=== PATIENT | female | born 1960 | race Caucasian/White ===

== ENCOUNTER 2017-07-09 08:51 | Inpatient (IN) | payer BC ==
[~2017-07-09 08:51] MED LIST: EPHEDrine SULFATE 50 MG/5 ML SYG
[2017-07-09] MEDS: LACTATED RINGER'S 1,000 ML IV ×2 (09:58→18:00)
[2017-07-09] MEDS ORDERED: PROPOFOL 20 ML ×2 (12:21→13:03)
[2017-07-09] MEDS ORDERED: MIDAZOLAM 1 MG/ML 2 ML INJ (12:22)
[2017-07-09] MEDS ORDERED: FENTAnyl 50 MCG/ML VIAL (12:22)
[2017-07-09] MEDS ORDERED: ROPIVACAINE 0.2% 20 ML VIAL ×2 (12:22→12:24)
[2017-07-09] MEDS ORDERED: BUPIVACAINE 0.75%/DEXT (SPINAL) 2 ML INJ (12:22)
[2017-07-09] MEDS ORDERED: METOCLOPRAMIDE 10 MG INJ (12:22)
[2017-07-09] MEDS ORDERED: ONDANSETRON 4 MG INJ (12:22)
[2017-07-09] MEDS: CEFAZOLIN 2 GM/50 ML (PMX) 50 ML (FOR WT < 120 KG) IVPB (12:56)
[2017-07-09] MEDS ORDERED: CEFAZOLIN 1 GM INJ (12:57)
[2017-07-09] MEDS ORDERED: ACETAMINOPHEN 1000MG/100ML IV 100 ML (12:57)
[2017-07-09] MEDS: TRANEXAMIC ACID 1,000 MG in D5W 100 ML AT INCISION X1 IVPB (13:14)
[2017-07-09] MEDS ORDERED: ONDANSETRON 4 MG INJ IV (13:30)
[2017-07-09] MEDS ORDERED: DIPHENHYDRAMINE 50 MG INJ IV ×2 (13:30→14:30)
[2017-07-09] MEDS ORDERED: MEPERIDINE 25 MG INJ IV (13:30)
[2017-07-09] MEDS ORDERED: HYDROmorphONE (0.2 MG/ML) 10ML SYG IV ×2 (13:30)
[2017-07-09] MEDS: BACITRACIN 50000 UNITS INJ IRR (13:39)
[2017-07-09] MEDS: POLYMYXIN B 500000 UNIT INJ IRR (13:39)
[2017-07-09] MEDS: TRANEXAMIC ACID 1,000 MG in D5W 100 ML AT CLOSURE X1 IVPB (13:40)
[2017-07-09] MEDS ORDERED: KETOROLAC 30 MG INJ (14:14)
[2017-07-09] MEDS: SOD CHLORIDE 0.9% 1,000 ML IV (14:27)
[2017-07-09] MEDS ORDERED: KETOROLAC 15 MG INJ IV (14:30)
[2017-07-09] MEDS ORDERED: oxyCODONE 5 MG TAB PO (14:30)
[2017-07-09] MEDS ORDERED: ZOLPIDEM 5 MG TAB PO (14:30)
[2017-07-09] MEDS ORDERED: MAGNESIUM HYDROXIDE 30ML CUP PO (14:30)
[2017-07-09] MEDS ORDERED: NA PHOSPHATE/BIPHOS 133 ML ENEMA PR (14:30)
[2017-07-09] MEDS ORDERED: TRIMETHOBENZAMIDE 100 MG/ML VIAL IM (14:30)
[2017-07-09] MEDS ORDERED: BETHANECHOL 25 MG TAB PO (14:30)
[2017-07-09] MEDS ORDERED: NALOXONE (0.4 MG/ML) INJ IV (14:30)
[2017-07-09] MEDS ORDERED: BISACODYL 10 MG SUPP PR (14:30)
[2017-07-09] MEDS ORDERED: SENNA/DOCUSATE NA (8.6MG/50MG) TAB PO (14:30)
[2017-07-09] MEDS: ONDANSETRON 4 MG INJ IV ×2 (14:54→20:30)
[2017-07-09] MEDS: DOCUSATE SODIUM 100 MG CAP PO (14:55)
[2017-07-09] MEDS: ASPIRIN (EC) 325 MG TAB PO (14:55)
[2017-07-09] MEDS: CEFAZOLIN 1 GM/50 ML (PMX) 50 ML IVPB ×2 (14:57→22:34)
[2017-07-09] MEDS ORDERED: BACITRACIN 50000 UNITS INJ (15:00)
[2017-07-09] MEDS: HYDROmorphONE (0.2 MG/ML) 10ML SYG IV (15:08)
[2017-07-09] MEDS: oxyCODONE 5 MG TAB PO ×2 (17:44→21:20)
[2017-07-09] MEDS: GABAPENTIN 100 MG CAP PO (21:00)
[2017-07-09] MEDS ORDERED: CELECOXIB 100 MG CAP PO (21:00)
[2017-07-10] MEDS: LACTATED RINGER'S 1,000 ML IV (02:00)
[2017-07-10] MEDS: oxyCODONE 5 MG TAB PO ×4 (02:12→13:55)
[2017-07-10] MEDS: SOD CHLORIDE 0.9% 1,000 ML IV (02:16)
[2017-07-10] MEDS: ONDANSETRON 4 MG INJ IV ×2 (02:28→08:56)
[2017-07-10 05:46] LABS: ADD MAN DIFF? NO
[2017-07-10 05:52] LABS: BASOPHIL # 0.1 10^3/ul (0.0-0.1); BASOPHILS % 0.6 % (0.0-2.0); EOSINOPHILS # 0.1 10^3/ul (0.0-0.5); EOSINOPHILS % 0.8 % (0.0-7.0); HEMATOCRIT 32.1 % (37.0-47.0); HEMOGLOBIN 10.5 g/dl (12.0-16.0); LYMPHOCYTES % 22.1 % (15.0-51.0); MEAN CORPUSCULAR HGB CONC 32.7 g/dl (32.0-37.0); MEAN CORPUSCULAR VOLUME 91.7 fl (82.0-101.0); MONOCYTE # 0.7 10^3/ul (0.3-0.9); MONOCYTES % 8.2 % (0.0-11.0); NEUTROPHIL # 6.2 10^3/ul (1.6-7.5); NEUTROPHILS % 67.9 % (39.0-77.0); PLATELET COUNT 277 10^3/UL (140-415); RED CELL DISTRIBUTION WIDTH 12.7 % (11.5-14.5)
[2017-07-10 05:52] LABS: WHITE BLOOD COUNT 9.1 10^3/ul (4.8-10.8)
[2017-07-10 06:19] LABS: ANION GAP 9 (8-16); BLOOD UREA NITROGEN 10 mg/dl (7-20); CALCIUM 8.2 mg/dl (8.4-10.2); CARBON DIOXIDE 32 mmol/L (21-31); CHLORIDE 106 mmol/L (97-110); CREATININE 0.75 mg/dl (0.44-1.00); GLUCOSE 87 mg/dl (70-220); POTASSIUM 4.9 mmol/L (3.5-5.1); SODIUM 142 mmol/L (135-144)
[2017-07-10] MEDS: CEFAZOLIN 1 GM/50 ML (PMX) 50 ML IVPB (06:27)
[2017-07-10] MEDS: DOCUSATE SODIUM 100 MG CAP PO (08:59)
[2017-07-10] MEDS: FERROUS FUMARATE (SR) TAB PO (09:00)
[2017-07-10] MEDS: GABAPENTIN 100 MG CAP PO (09:00)
[2017-07-10] MEDS: ASPIRIN (EC) 325 MG TAB PO (09:00)
[2017-07-11] MEDS ORDERED: PANTOPRAZOLE (EC) 40 MG TAB PO (06:00)
== END 2017-07-10 14:08 | disposition home health service (06) | DRG 470 ==
LOC: REC 08:51 → MS1 15:41
PROC: 0SRD0JZ Replacement of Left Knee Joint with Synthetic Substitute, Open Approach (ICD-10-PCS; principal; 2017-07-09 11:00)
DX: M17.12 Unilateral primary osteoarthritis, left knee (principal)
CPT/HCPCS: 73560; 80048; 85025; 86850; 86900; 86901; 87081; 88304; 88311; 97110; 97116; 97161; 97165; 97530